=== PATIENT | female | born 1990 | race Caucasian/White ===

== ENCOUNTER 2021-07-02 11:29 | Emergency (ER) | payer BC ==
[~2021-07-02] VITALS: Ht 162.6 cm; Wt 75.0 kg
[2021-07-02 11:56] VITALS: BP 113/74
== END 2021-07-02 16:43 | disposition home or self-care (01) ==
LOC: ER 11:30
DX: R00.2 Palpitations (principal); R42 Dizziness and giddiness; R06.02 Shortness of breath; F41.9 Anxiety disorder, unspecified
CPT/HCPCS: 71045; 93005; 99283